=== PATIENT | male | born 1990 | race African-American/Black ===

== ENCOUNTER 2018-03-14 12:28 | Emergency (ER) | payer SELFPAY ==
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
== END 2018-03-14 14:55 | disposition home or self-care (01) ==
LOC: ER 12:28
DX: S19.9XXA Unspecified injury of neck, initial encounter (principal); S99.911A Unspecified injury of right ankle, initial encounter; V49.49XA Driver injured in collision with other motor vehicles in traffic accident, initial encounter; Y92.410 Unspecified street and highway as the place of occurrence of the external cause
CPT/HCPCS: 72125; 99284